=== PATIENT | female | born 1990 | race American Indian/Alaskan Native ===

== ENCOUNTER 2019-02-26 09:10 | Inpatient (IN) | payer MEDICAID ==
--- NOTE | 2019-02-22 13:14 | History and Physical Report ---
History of Present Illness Date of examination: 02/22/19 Date of admission: 02/26/19 Chief complaint: Here for c/s and BTL History of present illness: EDC Confirmation: 03/03/2019 Gestational Age: 26 5/7 weeks Past History : 2 Term Births: 1 Living Children: 1 Para: 1 # 1 Delivery date: 2018 Weeks Gestation: 40 Delivery type: Anesthesia type: epidural Delivery location: [place] Sex: Male weight: 6-3 Comments: c/s due to failure to dilate Past Medical History: Negative Past Medical History Past Surgical History: Past Medical History Surgery (Non-steward/stewardess lounge): Abnormal PAP: negative JEAN CARLOS Exposure: negative Infertility: negative Uterine Anomaly: negative Uterine Surgery (not C/S): negative Other Gynecologic Problems: negative Medical History Comments: negative Family Hx: CA-" all types" mother-cervical; cousing-breast sister-HTN mother-HTN Infection History Hx of STD: none Partner hx. of genital herpes: no Rash, Viral, or Febrile illness since last LMP? no Varicella/Chicken Pox Status: Previous Disease Genetic History Congenital Heart Defect: Mom: no Dad: no Santy Disease: Mom: no Dad: no Thalassemia Mom: no Dad: no Neural Tube Defect Mom: no Dad: no Down's Syndrome Mom: no Dad: no Ashish-Sachs Mom: no Dad: no Sickle Cell Disease/Trait Mom: no Dad: no Hemophilia Mom: no Dad: no Muscular Dystrophy Mom: no Dad: no Cystic Fibrosis Mom: no Dad: no Bc Chorea Mom: no Dad: no Mental Retardation Mom: no Dad: no Fragile X Mom: no Dad: no Other Genetic/Chromosomal Disorder Mom: no Dad: no Child w/other defect Mom: no Dad: no Enviromental Exposures Xray Exposure: no Medication, drug, or alcohol use since LMP: no Chemical/Other Exposure: no Exposure to Cat Liter: no Hx of Parvovirus (Fifth Disease): no Occupational Exposure to Children: none Active Medications (reviewed today): PNV () Current Allergies (reviewed today): No known allergies Past History Past Medical History: no pertinent history Past Surgical History: section MANAGER RETENTION History: denies: abnormal PAP smear Social history: no significant social history, - Obstetrical History Expected Date of Delivery: 03/03/19 Actual Gestation: 38 Week(s) 5 Day(s) : 2 Para: 1 Hx # Term Pregnancies: 1 Number of Pregnancies: 0 Spontaneous Abortions: 0 Induced : 0 Number of Living Children: 1 Review of Systems All systems: negative - Physical Exam Breasts: Positive: deferred Cardiovascular: Regular rate, Normal S1, Normal S2 Lungs: Positive: Clear to auscultation, Normal air movement Abdomen: Positive: normal appearance, soft. Negative: distention, tenderness, guarding Genitourinary (Female): Positive: other (DEFERRED) Extremities: Positive: normal. Negative: tenderness, edema Deep Tendon Reflex Grade: Normal +2 - Obstetrical FHR: auscultation normal Results All other labs normal. Assessment and Plan - Patient Problems (1) Previous delivery affecting Status: Acute Plan to address problem: prepare for c/s with btl All risk, benefits and alternatives have been d/w pt and questions addressed and answered. consents signed and given to pt to present day of surgery. (2) Encounter for sterilization Status: Acute
[~2019-02-26 09:10] MED LIST: ceFAZolin 3 GM in NACL 0.9% 100 ML IV NR
[2019-02-26] MEDS ORDERED: LACTATED RINGERS 2,000 ML ONE (10:05)
[2019-02-26] MEDS: LACTATED RINGERS 1,000 ML IV SCH ×2 (10:20→11:26)
[2019-02-26 10:46] LABS: Basophils # (Auto) 0.1 K/mm3 (0.0-0.1); Basophils % (Auto) 0.5 % (0.0-1.8); Eosinophils # (Auto) 0.1 K/mm3 (0.0-0.4); Eosinophils % (Auto) 0.5 % (0.0-4.3); Hematocrit 35.7 % (30.3-42.9); Lymphocytes # (Auto) 2.2 K/mm3 (1.2-5.4); Lymphocytes % (Auto) 16.5 % (13.4-35.0); Mean Corpuscular HGB Conc 34 % (30-34); Mean Corpuscular Volume 91 fl (79-97); Monocytes # (Auto) 0.7 K/mm3 (0.0-0.8); Monocytes % (Auto) 5.6 % (0.0-7.3); Platelet Count 304 K/mm3 (140-440); Red Blood Count 3.94 M/mm3 (3.65-5.03); Red Cell Distribution Width 14.4 % (13.2-15.2)
[2019-02-26] MEDS ORDERED: REGLAN ONE (11:09)
[2019-02-26] MEDS ORDERED: BICITRA ONE (11:09)
[2019-02-26] MEDS ORDERED: PEPCID IV ONE ×2 (11:09→11:30)
[2019-02-26] MEDS ORDERED: PITOCin/NS 20 UNIT/1000ML DRIP 20,000 MILLIUNITS/1,000 ML BAG IV ONE (11:10)
[2019-02-26] MEDS ORDERED: ANCEF/STERILE WATER 2 GM/20 ML 2 GM/20 ML SYRINGE IV ONE (11:10)
[2019-02-26] MEDS ORDERED: BICITRA PO ONE (11:30)
[2019-02-26] MEDS ORDERED: REGLAN IV ONE (11:30)
[2019-02-26] MEDS ORDERED: PITOCin/NS 20 UNIT/1000ML DRIP 20 UNITS/1,000 ML BAG IV SCH ×2 (11:30→14:00)
[2019-02-26] MEDS ORDERED: DILAUDID IV PRN ×2 (11:44)
[2019-02-26] MEDS ORDERED: ZOFRAN IV PRN ×2 (11:44→13:23)
[2019-02-26] MEDS ORDERED: PHENERGAN PO PRN ×2 (11:44→13:23)
[2019-02-26] MEDS ORDERED: PHENERGAN PR PRN ×2 (11:44→13:23)
[2019-02-26] MEDS ORDERED: NARCAN 0.4 MG/1 ML IV PRN ×3 (11:44→13:23)
[2019-02-26] MEDS ORDERED: WATER FOR IRRIG STERILE IR ONE (11:50)
[2019-02-26] MEDS ORDERED: NACL 0.9% IR ONE (11:50)
[2019-02-26] MEDS ORDERED: SODIUM CHLORIDE FLUSH SYRINGE 10 ML IV NR ×3 (12:00→14:00)
[2019-02-26] MEDS ORDERED: NEO SYNEPHRINE ONE (12:18)
[2019-02-26] MEDS ORDERED: LACTATED RINGERS 1,000 ML ONE (12:23)
[2019-02-26] MEDS ORDERED: TORADOL ONE (12:35)
[2019-02-26] MEDS ORDERED: TUCKS PAD TP PRN (13:12)
[2019-02-26] MEDS ORDERED: LANSINOH TP PRN (13:12)
[2019-02-26] MEDS ORDERED: TORADOL IV PRN (13:12)
--- NOTE | 2019-02-26 13:12 | Operative Report ---
Operative Report Operative Report: Date of procedure: 02/26/2019 Pre-operative diagnosis: 39 weeks gestation Previous section Desires permanent sterilization Post-operative diagnosis: Same Procedure name(s): Repeat low transverse section via Pfannenstiel skin incision Bilateral tubal ligation via modified [place] method Surgeon: Dr. Flores Internet Programmer: SKYLAR Anesthesia: Epidural EBL: 600 mL Urine output: 100 mL of clear urine out at the end of procedure Fluids: 1700 mL Findings: Liveborn male infant weight 7 lbs. 13 oz. Apgars of 8 and 9 at one and 5 minutes Grossly normal fallopian tubes and ovaries bilaterally normal uterus. Adhesions of the uterus to the posterior abdominal wall Indications: Patient presents for repeat section with bilateral tubal ligation. All risk benefits and alternatives were discussed with the patient. Consents were signed and placed on the chart. Procedure: Patient was taking to the operating room. Patient was then prepped and draped in sterile fashion after anesthesia was found to be adequate. A low transverse skin incision was made with the scalpel through previous incisional scar and carried down to the underlying layer of fascia with the Bovie. The fascia was then incised in the midline and this incision was extended bilaterally with the Bovie. The superior aspect of the fascia was grasped with Diane clamps tented upward and dissected off of the anterior rectus muscles with the scalpel. In similar fashion the inferior aspect of the fascia was gras ped with Diane clamps tented upward and dissected off of the anterior rectus muscles. The rectus muscles were then sharply divided in the midline. The peritoneum was identified and entered into sharply. The bladder blade was placed. The Boaz retractor was placed. A lower transverse uterine incision was made with the scalpel and extended bilaterally with blunt dissection. Artificial rupture of membranes was performed yielding clear amniotic fluid. The 's head was then delivered atraumatically. The anterior shoulder and rest of infant delivered without difficulty. The umbilical cord was clamped x2. The cord was cut. The infant was then placed in sterile bassinet. The cord blood was collected. The placenta was manually extracted in its entirety. The uterus was exteriorized and cleared of all clots and debris. The uterine incision was closed using 0 Vicryl in a running locking fashion. Ezumbr-dw-eksov sutures using 0 Vicryl were done along the incision line to secu re excellent hemostasis. Attention was then turned to the fallopian tubes. A knuckle of the fallopian tube was suture ligated 2 and transected. Portion of tube was then handed off for pathology. This was done bilaterally. The posterior cul-de-sac was copiously irrigated. The uterus was returned to the abdomen. The gutters were also irrigated. The anterior rectus muscles were reapproximated using 3-0 Vicryl. The anterior rectus fascia was reapproximated using 0 Vicryl in a running fashion. The subcuticular fat was reapproximated using 2-0 Vicryl in a running fashion. The skin was reapproximated with [moises]. The patient tolerated the procedure well. Sponge lap and needle counts were all correct x3. Patient was taken to the recovery room awake and in stable condition.
--- NOTE | 2019-02-26 13:24 | Anesthesia Day of Surgery ---
Anesthesia Day of Surgery - Day of Surgery Patient Examined: Yes Patient H&P Reviewed: Yes Patient is NPO: Yes Beta Blockers: No Cardiac Clearance: No Pulmonary Clearance: No Raz's Test: N/A
--- NOTE | 2019-02-26 13:25 | Anesthesia Consultation ---
Anesthesia Consult and Med Hx Date of service: 02/26/19 - Airway Anesthetic Teeth Evaluation: Good ROM Head & Neck: Adequate Mental/Hyoid Distance: Adequate Mallampati Class: Class III Intubation Access Assessment: Probably Good - Pulmonary Exam CTA: Yes - Cardiac Exam Cardiac Exam: RRR - Pre-Operative Health Status ASA Pre-Surgery Classification: ASA2 Proposed Anesthetic Plan: Spinal - Pulmonary Hx Smoking: No Hx Asthma: No Hx Respiratory Symptoms: No SOB: No COPD: No Home Oxygen Therapy: No Hx Pneumonia: No Hx Sleep Apnea: No - Cardiovascular System Hx Hypertension: No Hx Coronary Artery Disease: No Hx Heart Attack/AMI: No Hx Angina: No Hx Percutaneous Transluminal Coronary Angioplasty (PTCA): No Hx Cardia Arrhythmia: No Hx Pacemaker: No Hx Internal Defibrillator: No Hx Valvular Heart Disease: No Hx Heart Murmur: No Hx Peripheral Vascular Disease: No - Central Nervous System Hx Neuromuscular Disorder: No Hx Seizures: No CVA: No Hx Back Pain: Yes Hx Psychiatric Problems: No - Gastrointestinal Hx Ulcer: No Hx Gastroesophageal Reflux Disease: Yes - Endocrine Hx Renal Disease: No Hx End Stage Renal Disease: No Hx Cirrhosis: No Hx Liver Disease: No Hx Insulin Dependent Diabetes: No Hx Non-Insulin Dependent Diabetes: No Hx Thyroid Disease: No Hx Hypothyroidism: No Hx Hyperthyroidism: No - Hematic Hx Anemia: No Hx Sickle Cell Disease: No - Other Systems Hx Alcohol Use: No Hx Substance Use: No Hx Cancer: No Hx Obesity: Yes
--- NOTE | 2019-02-26 13:26 | Post Anesthesia Evaluation ---
- Post Anesthesia Evaluation Patient Participated: Yes Airway Patent: Yes Stable Respiratory Function: Yes Nausea/Vomiting: No Temp > 96.8F: Yes Pain Manageable: Yes Adequeate Hydration: Yes Anesthesia Complications: No Block Receding Appropriately: Yes Patient on Ventilator: No
[2019-02-26] MEDS ORDERED: MORPHINE PCA 30MG/30ML IV SCH (14:00)
[2019-02-26] MEDS: ANCEF/NS 1 GM/50 ML 1 GM/50 ML BAG IV SCH ×2 (15:32→23:23)
[2019-02-26] MEDS: D5LR 1,000 ML IV SCH ×2 (15:32→23:24)
[2019-02-26] MEDS: NORCO 5/325 PO PRN (21:37)
[2019-02-27 01:34] LABS: Hematocrit 31.8 % (30.3-42.9); Hemoglobin 10.6 gm/dl (10.1-14.3)
[2019-02-27] MEDS: IBUPROFEN PO PRN ×4 (03:39→23:36)
[2019-02-27] MEDS ORDERED: BOOSTRIX IM ONE (04:30)
[2019-02-27] MEDS ORDERED: NORCO 5/325 PO PRN (06:00)
--- NOTE | 2019-02-27 07:44 | Progress Note ---
Assessment and Plan Patient doing well, no complaints. H&H 10.6/31.8, VSSAF, dressing D&I, pt to shower this afternoon and rn to remove dressing at that time. Encouraged advance in activity and diet as tolerated. All questions addressed, continue postop pathway. - Patient Problems (1) delivery delivered Current Visit: Yes Status: Acute Subjective - Subjective Date of service: 02/27/19 Principal diagnosis: postop day #1 s/p repeat c/s Patient reports: appetite normal, voiding normally, pain well controlled, flatus, ambulating normally, no dizzy ambulation, no nauseated : doing well, bottle feeding Objective - Vital Signs Latest vital signs: Vital Signs Temp Pulse Resp BP BP Pulse Ox 02/27/19 01:23 97.8 F 108 H 18 117/82 98 02/26/19 20:55 98.5 F 104 H 18 116/65 99 02/26/19 16:28 97.2 F L 92 H 18 102/52 100 02/26/19 14:49 97.4 F L 77 18 101/42 100 02/26/19 14:15 97.6 F 77 14 102/47 100 02/26/19 14:05 78 12 98/53 100 02/26/19 13:50 77 14 94/57 97 02/26/19 13:45 77 14 92/51 97 02/26/19 13:29 84 15 56/38 97 02/26/19 13:26 82 15 69/43 97 02/26/19 13:20 97.6 F 82 15 86/30 97 02/26/19 10:44 98.1 F 16 Intake and Output 02/26/19 02/26/19 02/27/19 15:59 23:59 07:59 Intake Total 3800 1033.333 240 Output Total 160 600 800 Balance 3640 433.333 -560 Intake: IV 3800 1033.333 ANCEF/NS 1 GM/50 ML 1 gm 50 In 50 ml @ 100 mls/hr IV Q8H LEYLA Rx#:[id number] D5lr 1,000 ml @ 125 mls/ 983.333 hr IV DIRECT LEYLA Rx#: [id number] Lactated Ringers 1,000 ml 1000 @ 2250 mls/hr IV PREOP LEYLA Rx#:[id number] Intake, Free Water 240 Output: Urine 160 600 800 Indwelling Catheter 600 800 Other: Total, Output Amount 600 800 Weight 120.202 kg Estimated Blood Loss 600 - Exam Breasts: Present: normal Cardiovascular: Present: Regular rate Lungs: Present: Clear to auscultation, Normal air movement Abdomen: Present: normal appearance, soft Vulva: both: normal Uterus: Present: normal, firm, fundal height at umbilicus Extremities: Present: normal Deep Tendon Reflex Grade: Normal +2 Incision: Present: normal, dry, dressed - Labs Labs: Abnormal lab results 02/26/19 Range/Units Unknown WBC 13.4 H (4.5-11.0) K/mm3 Seg Neutrophils % 76.9 H (40.0-70.0) % Seg Neutrophils # 10.3 H (1.8-7.7) K/mm3
[2019-02-27] MEDS ORDERED: FEOSOL PO SCH ×2 (10:00)
[2019-02-27] MEDS: NORCO 5/325 PO PRN ×2 (10:16→15:53)
[2019-02-27] MEDS: FEOSOL PO SCH (10:16)
--- NOTE | 2019-02-28 08:26 | Discharge Summary ---
Providers - Providers Date of Admission: 02/26/19 09:10 Date of discharge: 02/28/19 (patient desires discharge today) Attending physician: RENEE DONATO Primary care physician: RENEE DONATO Hospitalization Reason for admission: scheduled Repeat c/s with BTL Condition: Good Pertinent studies: post delivery H&H 10.6/31.8 Procedures: repeat c/s with btl Hospital course: uncomplicated c/s and post op course Disposition: TO HOME OR SELFCARE Core Measure Documentation - Palliative Care Palliative Care/ Comfort Measures: Not Applicable - Core Measures Any of the following diagnoses?: none Exam - Constitutional Vitals: Temp Pulse Resp BP Pulse Ox 98.5 F 96 H 18 118/78 98 02/28/19 00:07 02/28/19 00:07 02/28/19 00:07 02/28/19 00:07 02/28/19 00:07 General appearance: Present: no acute distress, well-nourished - EENT Eyes: Present: PERRL ENT: hearing intact, clear oral mucosa - Neck Neck: Present: supple, normal ROM - Respiratory Respiratory effort: normal Respiratory: bilateral: CTA - Cardiovascular Rhythm: regular Heart Sounds: Present: S1 & S2. Absent: rub, click - Extremities Extremities: pulses symmetrical, No edema Peripheral Pulses: within normal limits - Abdominal General gastrointestinal: Present: soft, non-tender, non-distended, normal bowel sounds Female genitourinary: Present: normal - Integumentary Integumentary: Present: clear, warm, dry - Musculoskeletal Musculoskeletal: gait normal, strength equal bilaterally - Psychiatric Psychiatric: appropriate mood/affect, intact judgment & insight - Neurologic Neurologic: CNII-XII intact, moves all extremities - Additional findings Additional findings: fundus firm, ML, U/1. vaginal bleeding is scant. Incision is well approximated, healing well, no bleeding or drainage, no s/s infection. Steri strips remain in place. DWP good hygiene care for incision. SHe is bottle feeding only, reports breasts feel well, no complaints. VSSAF. Patient desires d/c today. May d/c home today at 1400 pending she remains stable until that time, please notify provider of any abnormal VS or assessments. Plan Activity: advance as tolerated Diet: regular Wound: open to air, keep clean and dry Follow up with: RENEE DONATO MD [Primary Care Provider] - 7 Days (Congratulations! Please keep your scheduled incision check appointment at [facility] [place] in 1 week. Please call [phone] to schedule your son's circumcision in 1 week. Bring EMLA cream with you to his appointment and await further instructions for use. Please call with any questions or concerns. ) Prescriptions: Docusate Sodium [Colace] 100 mg PO BID PRN #60 capsule PRN Reason: Constipation Lidocain2.5%/Prilocai2.5% [Emla] 2 gm TP ONCE #1 tube Ferrous Sulfate [Feosol 325 MG tab] 325 mg PO QDAY #30 tablet Ibuprofen 800 mg PO Q6HR #30 tablet oxyCODONE /ACETAMINOPHEN [Percocet 5/325] 1 tab PO Q4HR #30 tab
[2019-02-28] MEDS: IBUPROFEN PO PRN (08:32)
[2019-02-28] MEDS: FEOSOL PO SCH (10:33)
[2019-02-28 17:31] VITALS: BP 100/60
== END 2019-02-28 17:37 | disposition home or self-care (01) | DRG 765 ==
LOC: APU 09:10 → OB 15:01
PROVIDERS: ADMIT Obstetrics & Gynecology; ATTEND Obstetrics & Gynecology
PROC: 10D00Z1 Extraction of Products of Conception, Low, Open Approach (ICD-10-PCS; principal; 2019-02-26)
PROC: 0UB70ZZ Excision of Bilateral Fallopian Tubes, Open Approach (ICD-10-PCS; 2019-02-26)
PROC: 3E0234Z Introduction of Serum, Toxoid and Vaccine into Muscle, Percutaneous Approach (ICD-10-PCS; 2019-02-27)
DX: O34.211 Maternal care for low transverse scar from previous cesarean delivery (principal); Z68.42 Body mass index [BMI] 45.0-49.9, adult; Z3A.39 39 weeks gestation of pregnancy; O99.214 Obesity complicating childbirth; E66.01 Morbid (severe) obesity due to excess calories; Z37.0 Single live birth; Z23 Encounter for immunization; Z82.49 Family history of ischemic heart disease and other diseases of the circulatory system; K21.9 Gastro-esophageal reflux disease without esophagitis; O99.62 Diseases of the digestive system complicating childbirth
CPT/HCPCS: 36415; 85014; 85018; 85025; 86850; 86900; 86901; 88302; 88307; 90471; 90715; G0378; C1765; J0690; J1885; J2270; J2370; J2590; J2765; J7120; J7121